=== PATIENT | female | born 1965 | race American Indian/Alaskan Native ===

== ENCOUNTER 2020-09-03 07:51 | Outpatient (CLI) | payer OTHER ==
--- NOTE | 2020-09-03 08:48 | XRay Report ---
BILATERAL KNEES 2 VIEWS INDICATION: BILATERAL KNEE PAIN. COMPARISON: None. IMPRESSION: Normal bone mineralization. Right knee arthroplasty changes are noted. The hardware appe ars well applied. There is normal articulation at the joint. No acute osseous or soft tissue abnormal ity is detected. Moderate to severe tricompartmental osteoarthritic changes are identified in the le ft knee. No evidence for acute fracture or bone lesion. Moderate joint effusion is noted on the later al image. Signer Name: Pal Jett Jr, MD Signed: 09/03/2020 8:44 AM Workstation Name: [id number]
== END 2020-09-03 07:52 | disposition home or self-care (01) ==
LOC: XRAY 07:51
PROVIDERS: ATTEND Internal Medicine
DX: M17.12 Unilateral primary osteoarthritis, left knee (principal); M25.469 Effusion, unspecified knee; Z96.659 Presence of unspecified artificial knee joint